=== PATIENT | male | born 1970 | race Caucasian/White ===

== ENCOUNTER → 2020-04-15 10:19 | Outpatient (BNVA) | payer OTHER, SELFPAY | PROVIDERS: PCP Family Medicine; Visit Provider Physician Assistant | DX: M23.91 Unspecified internal derangement of right knee (principal) | CPT/HCPCS: 99203 ==

== ENCOUNTER → 2020-04-17 10:27 | Outpatient (BNVA) | payer OTHER, SELFPAY | PROVIDERS: PCP Family Medicine; Visit Provider Physician Assistant Medical | DX: S83.91XA Sprain of unspecified site of right knee, initial encounter (principal); X58.XXXA Exposure to other specified factors, initial encounter | CPT/HCPCS: 99213 ==

== ENCOUNTER → 2020-04-24 10:41 | Outpatient (BNVA) | payer OTHER, SELFPAY | PROVIDERS: PCP Family Medicine; Visit Provider Physician Assistant Medical | DX: S83.91XA Sprain of unspecified site of right knee, initial encounter (principal); X58.XXXA Exposure to other specified factors, initial encounter | CPT/HCPCS: 99213 ==

== ENCOUNTER → 2020-05-08 09:36 | Outpatient (BNVA) | payer OTHER, SELFPAY | PROVIDERS: PCP Family Medicine; Visit Provider Physician Assistant Medical | DX: S83.91XD Sprain of unspecified site of right knee, subsequent encounter (principal); X58.XXXD Exposure to other specified factors, subsequent encounter | CPT/HCPCS: 99213 ==

== ENCOUNTER → 2020-05-17 09:12 | Outpatient (BNVA) | payer OTHER, SELFPAY | PROVIDERS: PCP Family Medicine; Visit Provider Physician Assistant Medical | DX: Z76.89 Persons encountering health services in other specified circumstances (principal) | CPT/HCPCS: 99213 ==

== ENCOUNTER → 2020-05-27 09:13 | Outpatient (BNVA) | payer OTHER, SELFPAY | PROVIDERS: PCP Family Medicine; Visit Provider Physician Assistant | DX: Z76.89 Persons encountering health services in other specified circumstances (principal) | CPT/HCPCS: 99213 ==

== ENCOUNTER 2020-05-28 09:00 | Outpatient (RCR) | payer OTHER, BC, SELFPAY ==
--- NOTE | 2020-04-30 09:01 | MHC.PT.EP ---
[facility] [place] Office [place] Office [place] Office [address] Christiaon Rivera [address] [phone] F: [phone] F: [phone] F: [phone] F: [phone] Physical Therapy Plan of Care Date of Evaluation: 04/30/20 Date of Surgery: Diagnosis: R knee sprain Assessment: Pt is a 50 y/o male referred to skilled PT for a right knee sprain s/p work incident on Apr 15, 2020. [employer] stepping over a conveyor, stepped down with a flat foot, and instantly felt sharp right knee joint pain. No twisting/rotating occurred. Assessment reveals mild impaired ROM with feeling of tightness in the knee joint at end range, mild decreased patella mobility, mild tenderness to palpation @ superior and medial aspect of the right knee, mild decreased strength, mild muscle length deficits, and pain. (-) ligamentous instability tests and meniscal tests. Related functional limitations include: standing, walking, jogging, stair negotiation, and squatting. Pt is currently on restricted duty, but still seems to be standing for most of his 8 hour work day. 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 He will require RTW simulation when pain resolves. Pt will be seen 2x/week for 5 weeks in order to reduce impairments and improve limitations. Frequency and Duration: The patient will be seen 2x/week for 5 weeks. Short Term Goals: -In 2 weeks, Pt to report < 4/10 pain w/ activity during PT session. -In 3 weeks, Pt to restore R knee AROM to WNL w/o feeling of tightness reported. [employer] Goals: -In 4 weeks, Pt to demonstrate the ability to ambulate on the TM at a brisk walking speed x 10 min w/ <2/10 pain reported. -In 5 weeks, Pt to demonstrate the ability to perform work sim activities w/o pain. Treatment Plan: Modalities to reduce pain, spasms and effusion. Manual therapy to restore motion and function. Therapeutic exercise to improve strength and flexibility. Neuromuscular re-education for posture and balance. Therapeutic activities to return to functional activities of daily living. Electronically signed by: Chel Goode PT, DPT Please sign and return to therapist. Thank you for your referral.
--- NOTE | 2020-06-29 14:40 | MHC.PT.DC ---
[facility] [place] Office [place] Office [place] Office [address] Christiano Rivera [address] [phone] F: [phone] F: [phone] F: [phone] F: [phone] Physical Therapy Discharge Report Diagnosis: R knee sprain Date of Surgery: NA Date of Evaluation: 04/30/20 Date of Discharge: 04/27/21 Treatments to Date: 7 Cancellations to Date: 4 No Shows to Date: 0 Discharge Status: Patient Elected to Stop Discharge Summary: Pt was progressing well w/ PT to address his right knee pain following a work related injury. He then cancelled the rest of his visits, unknown reason. D/C at this time, as Pt has elected to stop PT. Electronically signed by: Chel Goode PT, DPT Please sign and return to therapist. Thank you for your referral.
== END 2020-07-30 09:53 | disposition other institution (70) ==
LOC: HO.PT 09:00
PROVIDERS: Visit Provider Physician Assistant Medical
DX: S83.91XD Sprain of unspecified site of right knee, subsequent encounter (principal)
CPT/HCPCS: 97035; 97110; 97140; 97161; 97530

== ENCOUNTER → 2020-06-05 08:58 | Outpatient (BNVA) | payer OTHER, SELFPAY | PROVIDERS: PCP Family Medicine; Visit Provider Physician Assistant | DX: M23.8X1 Other internal derangements of right knee (principal); M25.461 Effusion, right knee; M23.203 Derangement of unspecified medial meniscus due to old tear or injury, right knee | CPT/HCPCS: 99213 ==